=== PATIENT | female | born 1965 | race Caucasian/White ===

== ENCOUNTER 2017-08-07 12:31 | Emergency (ER) | payer MEDICAID ==
[~2017-08-07] VITALS: Ht 165.1 cm; Wt 116.0 kg
[~2017-08-07 12:31] MED LIST: IBUP-2030 PO
[2017-08-07 12:50] VITALS: BP 138/96
== END 2017-08-07 18:04 | disposition left against medical advice (07) ==
LOC: ER 15:24
DX: H57.11 Ocular pain, right eye (principal); Z53.21 Procedure and treatment not carried out due to patient leaving prior to being seen by health care provider